=== PATIENT | female | born 1960 | race Caucasian/White ===

== ENCOUNTER 2016-08-11 22:26 | Emergency (ER) | payer OTHER ==
--- NOTE | ~2016-08-11 | CR63 ---
[facility] A Service of [facility] & [facility] / [facility] RADIOLOGY TEXT RESULTS PATIENT: HANNA HOWARD LOCATION: SED : 62 UNIT #: [id number] AGE: [address]: LANDEN BECK PA-C SEX: F ORDER DR: [id number] [address] [address] [id number] MR#: [id number] Acc #: [id number] NAME: HANNA HOWARD. : 1960 SEX: F STUDY DATE/TIME: 08/11/2016 23:04 UNIT: SED ROOM: STUDY DESCRIPTION: CR Chest 2 View Attending Physician: Landen Beck Pa-C Ordering Physician: Physician Non-Staff Primary Care Physician: Hitesh Wang M.D. MEDICAL IMAGING REPORT This report is preliminary unless electronic signature is present. EXAM Two-view chest, 08/11/2016 HISTORY 56-year-old female with chest pain for 1 week and cough for 2 weeks. Essential hypertension. COMPARISON Chest, 06/06/2010 FINDINGS 2 views of the chest demonstrate clear lungs. No pleural effusion or pneumothorax. Heart size and mediastinum are within normal limits. Pulmonary vasculature unremarkable. IMPRESSION No acute cardiopulmonary findings. Dictated by... Ravi Garibay M.D. THIS IS AN ELECTRONICALLY VERIFIED REPORT Ravi Garibay M.D. at 08/12/2016 11:30 PM Franc TD: 08/12/2016 12:48 JOB #: [id number] MEDICAL IMAGING REPORT Page 1 of 1
--- NOTE | ~2016-08-11 | EKG ---
PATIENT: HANNA HOWARD UNIT #: [id number] Ventricular Rate: 87 BPM Atrial Rate: 87 BPM P-R Interval: 154 ms QRS Duration: 82 ms Q-T Interval: 384 ms QTC Calculation(Bezet): 462 ms P [place]: 53 degrees Calculated R [place]: 30 degrees Calculated T [place]: 40 degrees Diagnosis Line: Normal sinus rhythm Diagnosis Line: Normal ECG Diagnosis Line: No previous ECGs available Diagnosis Line: Confirmed by JAC GARDNER MD ([id number]) on 08/23/2016 Diagnosis Line: 7:56:20 PM INTERPRETING MD: JJ COATES
[~2016-08-11 22:26] MED LIST: ALDACTONE; AMOXICILLIN PO; CARDIA; CARDIZEM CD; CARDIZEM CD PO; CARTIA XT PO; CIPRODEX OTIC7.5 ML OT; FLOMAX0.4 M1 PO; HCTZ PO; HYDROCODON-ACE1 EAC7 PO; IBUPROFEN PO; LORTAB 7.5-5001 TAB PO; MICRO-K PO; NAPROXEN PO; NORCO 5/325 TAB1 TAB PO; PHENERGAN25 MG PO; PHENTERMINE; PROZAC PO; PROZAC10 M1 PO; TYLENOL #3 PO; VICODIN 5/1 TAB 5/50 PO; VICODIN 5/500 T1 TAB PO; VICODIN PO; VOLTAREN75 MG PO; WATER PILL PO; WELLBUTRIN; ZITHROMAX PO; ZOFRANODT SL
[2016-08-11 23:01] LABS: INFLUENZA A NEG (NEG); INFLUENZA B NEG (NEG)
[2016-08-11 23:23] LABS: BASOPHIL# 0.1 X10e3 (0-0.3); BASOPHIL% 1.5 % (0-2.5); EOSINOPHIL# 0.3 X10e3 (0-0.7); EOSINOPHIL% 3.8 % (0.0-7.0); HEMATOCRIT 41.6 % (35.0-45.0); HEMOGLOBIN 14.2 gm/dL (12.0-16.0); LYMPHOCYTE# 3.6 X10e3 (1.0-3.5); LYMPHOCYTE% 41.1 % (17.0-45.0); MEAN CELL VOLUME 90.9 FL (83-96); MEAN CORPUSCULAR HEMOGLOBIN 31.1 PG (28-34); MEAN CORPUSCULAR HGB CONC 34.2 g/dL (30-36); MEAN PLATELET VOLUME 8.3 FL (6.5-11.5); MONOCYTE# 0.6 X10e3 (0-1.0); MONOCYTE% 6.6 % (3.0-12.0); NEUTROPHIL# 4.1 X10e3 (1.5-7.1); PLATELET COUNT 224 X10e3 (140-420); RED BLOOD COUNT 4.57 X10e (3.90-5.30); RED CELL DISTRIBUTION WIDTH 12.8 % (11.0-15.5); WHITE BLOOD COUNT 8.8 X10e3 (4.0-10.5)
[2016-08-11 23:24] LABS: DIFF IND NO
[2016-08-11 23:41] LABS: BILIRUBIN, DIRECT 0.1 mg/dL (0.0-0.2); BILIRUBIN,INDIRECT 0.4 mg/dL (0.0-0.9); BILIRUBIN,TOTAL 0.5 mg/dL (0.2-2.0); BUN/CREATININE RATIO 15.55; CALCIUM SERUM 9.5 mg/dL (8.4-10.2); CREATININE SERUM 0.9 mg/dL (0.6-1.4); POTASSIUM 3.3 mmol/L (3.5-5.1); PROTEIN TOTAL SERUM 8.1 g/dL (6.0-8.3)
[2016-08-11 23:43] LABS: POC - CKMB <1.0 ng/mL (0.0-7.9)
[2016-08-11 23:44] LABS: POC - TROPONIN <0.05 ng/mL (<=0.05)
== END 2016-08-12 00:48 | disposition home or self-care (01) ==
LOC: SED 22:26
PROVIDERS: Physician Assistant
DX: J20.9 Acute bronchitis, unspecified (principal); I10 Essential (primary) hypertension
CPT/HCPCS: 71020; 80048; 80076; 82553; 83874; 84484; 85025; 87804; 93005; 96372; 99283; J1885